=== PATIENT | male | born 1980 | race Caucasian/White ===

== ENCOUNTER 2018-07-19 13:17 | Observation (INO) | payer MEDICARE, MEDICAID ==
[~2018-07-19] VITALS: Ht 188 cm; Wt 109.5 kg
--- NOTE | 2018-07-19 13:52 | NUR ---
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
--- NOTE | 2018-07-19 14:00 | NUR ---
IN TRIAGE PT STATED HE WAS SUICIDAL WITHOUT A PLAN AT THIS TIME, BUT STATES THAT HE WAS GOING TO HURT HIMSELF VERY SOON. PT PRSENTED TO TRIAGE WITH EMPLOYEE, MADDI, FROM [facility] [employer] [employer] WHO STATES HE IS A FRIEND OF PT. PER MADDI, PT HAS BEEN VERY SUICIDAL LATELY AND HE INFORMED THIS RN THAT THE HE WILL HARM HIMSELF IF LEFT ALONE. PT WAS INFORMED THAT WHEN WE TAKE HIM TO A ROOM IN ED, PER POLICY ALL PT BELONGINGS WILL BE REMOVED FOR PT AND STAFF SAFETY. PT STATED, "GOOD LUCK." WHEN ASKED WHAT HE MEANT BY THAT STATEMENT PT STATED THAT HE WOULD NOT BE COOPERATIVE OR COMPLY WITH ED POLICY. PT THEN ATTEMPTED TO ELOPE FROM ED AND SECURITY WAS CALLED. SECURITY BROUGHT PT BACK INTO ED.
--- NOTE | 2018-07-19 14:03 | NUR ---
VERBALLY CONTRACTED WITH THIS RN TO STAY IN ROOM. PATIENT HAS BEEN COOPERATIVE AFTER SECURITY HELD PATIENT. PATIENT AGREES FOR LAB DRAW AND URINE COLLECTION. CLOTHES OBTAINED AND PROCESS EXPLAINED MADDI, FRIEND, , [facility] WORKERS COMPENSATION ATTORNEY, ACCOMPANIED PATIENT
--- NOTE | 2018-07-19 14:14 | NUR ---
SITTER AT BS
--- NOTE | 2018-07-19 14:22 | NUR ---
PATIENT MED FROM PHARM, PATIENT UPDATED ON PLAN OF CARE, TAXI VOUCHER ESTABLISHED
[2018-07-19 14:56] LABS: BASOPHILS # (AUTO) 0.02 x10^3/uL (0-0.1); BASOPHILS % (AUTO) 0 % (0-1); EOSINOPHILS # (AUTO) 0.12 x10^3/uL (0-0.4); EOSINOPHILS % (AUTO) 2 % (1-7); LYMPHOCYTES # (AUTO) 1.92 x10^3/uL (1-3.4); LYMPHOCYTES % (AUTO) 30 % (22-44); MD NO; MEAN CORPUSCULAR HEMOGLOBIN 30.4 pg (27.5-34.5); MEAN CORPUSCULAR HGB CONC 33.7 g/dL (33.2-36.2); MEAN CORPUSCULAR VOLUME 90.2 fL (81-97); MEAN PLATELET VOLUME 8.8 fL (7.4-10.4); MONOCYTES # (AUTO) 0.31 x10^3/uL (0.2-0.8); MONOCYTES % (AUTO) 5 % (2-9); NEUTROPHILS # (AUTO) 3.96 x10^3/uL (1.8-6.8); NEUTROPHILS % (AUTO) 62 % (42-75); PLATELET COUNT 238 x10^3/uL (130-400); RED BLOOD COUNT 5.14 x10^6/uL (4.38-5.82); RED CELL DISTRIBUTION WIDTH 13.1 % (9.4-14.8)
[2018-07-19 15:01] LABS: ALANINE AMINOTRANSFERASE 25 U/L (12-78); ANION GAP 7 mmol/L (5-15); CALCIUM 9.1 mg/dL (8.5-10.1); CHLORIDE 110 mmol/L (98-107); CREATININE 0.96 mg/dL (0.7-1.3); SALICYLATE LEVEL 4.4 mg/dL (2.8-20.0)
--- NOTE | 2018-07-19 15:01 | NUR ---
PATIENT AWARE THAT UA IS NEEDED. PATIENT COOPERATIVE WITH EXAM. AXOX4. STATES "MY HEADS HURTS. I HAVE BLOOD CLOTS IN MY HEAD"
[2018-07-19] MEDS ORDERED: CLOP75TA PO (15:06)
[2018-07-19] MEDS ORDERED: SIMV80TA7 PO (15:06)
[2018-07-19 15:14] LABS: ACETAMINOPHEN < 2 mcg/mL (10-30); ALKALINE PHOSPHATASE 97 U/L (45-117); BILIRUBIN,TOTAL 0.2 mg/dL (0.2-1.0); TOTAL PROTEIN 7.5 g/dL (6.4-8.2)
[2018-07-19] MEDS ORDERED: GABA800T2 PO (15:14)
[2018-07-19] MEDS ORDERED: ASPI-496 PO (15:14)
[2018-07-19] MEDS ORDERED: TOPI25TA8 PO (15:14)
[2018-07-19] MEDS ORDERED: VENL150T PO (15:14)
--- NOTE | 2018-07-19 15:41 | NUR ---
MEDICATIONS TAKEN TO [facility]. RECEIPT ON CHART
[2018-07-19 16:01] LABS: AMPHETAMINE SCREEN, URINE Negative (Negative); BARBITURATE SCREEN, URINE Negative (Negative); BENZODIAZEPINE SCREEN, URINE Negative (Negative); CANNABINOID SCREEN, URINE Negative (Negative); COCAINE SCREEN, URINE Negative (Negative); METHADONE SCREEN, URINE Negative (Negative); OPIATE SCREEN, URINE Negative (Negative)
--- NOTE | 2018-07-19 16:21 | NUR ---
PROVIDED REPORT TO SOC. ALL QUESTIONS ANSWERED. TELEPSYCH MONITOR AT BEDSIDE.
--- NOTE | 2018-07-19 16:22 | NUR ---
LATE NOTE ENTRY FOR 1615. PT AMBULATED FROM ROOM TO MAIN NURSING STATION STATING, "I AM REALLY ANXIOUS THIS IS BULL SHIT I WANT TO LEAVE." PT ABLE TO BE VERBALLY REDIRECTED TO ROOM. SPOKE TO ED MD. ED MD AWARE. WILL PROVIDE MEDS PER EMAR AFTER SOC MD TALKS WITH PT, PER SOC MD REQUEST.
[2018-07-19] MEDS ORDERED: LORazepam 1MG TABLET PO ONE (16:30)
--- NOTE | 2018-07-19 16:40 | NUR ---
GE CARLSON SPOKE TO PT AND BUILT POSITIVE RAPPORT WITH PT. PER GE CARLSON PT STATES, "HIS FATHER WAS KILLED WHEN HE WAS 1 YEARS OLD. HIS MOTHER TOOK CARE OF HIM. AN ADULT HIS MOTHER DID ALL HIS GROCERY SHOPPING AND CLEANED HIS HOUSE AND TOOK CARE OF HIM. HIS MOTHER GOT CANCER AND FOR 6 YEARS HE TOOK CARE OF HIS MOM. HIS MOM FROM CANCER 6 YEARS AGO AND HE "JUST HASN'T BEEN THE SAME SINCE". HE HAS A 16 YEAR OLD DAUGHTER IN [place] WHO LIVES WITH HIS EX WHO IS RE-. HE HAS BEEN IN THE [employer] AND IN 9 DAYS WILL BE GRADUATING FROM [employer]. HE WAS ASKED BY THEM WHAT HIS PLAN IS WHEN HE FINISHES. HE DOESN'T HAVE A PLAN. HE HAS A HISTORY OF MINI STROKES. HE SAID IF HE COMES OUT OF ONE HE IS GOING TO KILL HIMSELF."
--- NOTE | 2018-07-19 16:42 | NUR ---
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 PROVIDING NICOTINE PATCH PER EMAR.
--- NOTE | 2018-07-19 16:47 | NUR ---
JOSE LUIS DAUGHERTY CALLED AND SPOKE TO THIS RN. PER JOSE LUIS DAUGHERTY, "PATIENT WILL REMAIN ON A HOLD AND NEED A MENTAL HEALTH ADMISSION". PER JOSE LUIS DAUGHERTY, "I WILL WRITE IN THE ORDER."
[2018-07-19] MEDS ORDERED: NICOTINE 14MG/24 HR PATCH.TD24 ONE (16:48)
[2018-07-19] MEDS ORDERED: LORazepam 1MG TABLET ONE (16:49)
[2018-07-19] MEDS ORDERED: NICOTINE 14MG/24 HR PATCH.TD24 TD ONE (17:00)
--- NOTE | 2018-07-19 17:48 | NUR ---
PROVIDED PT ADDITONAL MEAL TRAY PER REQUEST. PT APPRECIATIVE. NADN. NO NEEDS EXPRESSED AT THIS TIME. SITTER NEAR DOORWAY IN DIRECT LINE OF SIGHT FOR OBSERVATION.
--- NOTE | 2018-07-19 18:17 | NUR ---
Provided report to GROVER Abreu. All questions answered.
--- NOTE | 2018-07-19 18:24 | NUR ---
PACKET FAXED TO [facility] AND [facility]
[2018-07-19] MEDS ORDERED: LORazepam 1MG TABLET PO PRN (18:30)
--- NOTE | 2018-07-19 18:34 | NUR ---
PT RESTING ON [facility] WATCHING TV. NADN. NO NEEDS EXPRESSED AT THIS TIME. SITTER NEAR DOORWAY IN DIRECT LINE OF SIGHT FOR OBSERVATION.
--- NOTE | 2018-07-19 18:59 | NUR ---
Provided report to GROVER Mcbride. All questions answered. GROVER Mcbride assuming care of pt at this time.
[2018-07-19] MEDS ORDERED: BISACODYL 10 MG SUPP PR PRN (19:00)
[2018-07-19] MEDS ORDERED: ACETAMINOPHEN 325 MG TABLET PO PRN (19:00)
[2018-07-19] MEDS ORDERED: DIPHENHYDRAMINE 50 MG CAPSULE PO PRN (19:00)
[2018-07-19] MEDS ORDERED: POLYETHYLENE GLYCOL 17 GM PACKET PO PRN (19:00)
[2018-07-19] MEDS ORDERED: ONDANSETRON ODT 4 MG PO PRN (19:00)
[2018-07-19] MEDS: GABAPENTIN 400 MG CAPSULE PO SCH ×2 (19:00→21:04)
--- NOTE | 2018-07-19 19:15 | NUR ---
PT RESTING ON GURNEY WITH EYES CLOSED, NADN, EQUAL CHEST RISE/FALL OBSERVED, SITTER AT DOORWAY FOR CONTINOUS MONITORING.
[2018-07-19 19:26] VITALS: BP 124/73
[2018-07-19 20:55] VITALS: BP 124/73
[2018-07-19] MEDS: QUETIAPINE 100MG TABLET PO SCH (21:02)
[2018-07-19] MEDS: TOPIRAMATE 25 MG TABLET PO SCH (21:03)
[2018-07-19] MEDS: SIMVASTATIN 40 MG TABLET PO SCH (21:04)
[2018-07-20] MEDS: GABAPENTIN 400 MG CAPSULE PO SCH ×4 (07:57→21:00)
[2018-07-20 08:03] VITALS: BP 130/75
[2018-07-20] MEDS: TOPIRAMATE 25 MG TABLET PO SCH ×2 (08:22→21:00)
[2018-07-20] MEDS: QUETIAPINE 25MG TABLET PO SCH ×2 (08:22→08:34)
[2018-07-20] MEDS: SENNA/DOCUSATE TABLET PO SCH ×2 (08:22→08:34)
[2018-07-20] MEDS ORDERED: CLOPIDOGREL 75 MG TABLET PO SCH (09:00)
[2018-07-20] MEDS ORDERED: VENLAFAXINE XR 37.5MG CAP.ER.24H PO SCH (09:00)
[2018-07-20] MEDS ORDERED: ASPIRIN 81 MG TABLET CHEW PO SCH (09:00)
[2018-07-20 19:45] VITALS: BP 122/82
[2018-07-20] MEDS ORDERED: NICOTINE 21 MG/24 HR PATCH.TD24 TD SCH (20:30)
[2018-07-20] MEDS: QUETIAPINE 100MG TABLET PO SCH (21:00)
[2018-07-20] MEDS: SIMVASTATIN 40 MG TABLET PO SCH (21:00)
== END 2018-07-20 21:45 ==
LOC: ED 15:03 → EDIP 17:50 → 2N 19:23
PROVIDERS: ADMIT Hospitalist; ATTEND Hospitalist
DX: R45.851 Suicidal ideations (principal); F29 Unspecified psychosis not due to a substance or known physiological condition; F32.9 Major depressive disorder, single episode, unspecified; I63.9 Cerebral infarction, unspecified; Z59.0 Homelessness; Z86.73 Personal history of transient ischemic attack (TIA), and cerebral infarction without residual deficits
CPT/HCPCS: 36415; 80053; 80307; 80329; 85025; 99284; G0378; G0480